=== PATIENT | female | born 1990 ===

== ENCOUNTER 2017-05-24 15:08 | Emergency (ER) | payer MEDICAID ==
[2017-05-24 15:20] VITALS: RESP 18; BMI 25.6
[2017-05-24 15:22] VITALS: O2SAT 100
[2017-05-24] MEDS ORDERED: Sodium Chloride 0.9% 1,000 ML IV ONE (15:42)
[2017-05-24 15:52] LABS: RBC URINE 4 /hpf (0-3); URINE BILIRUBIN NEGATIVE (NEGATIVE); URINE COLOR Yellow (YELLOW); URINE GLUCOSE (UA) NORMAL (Normal); URINE KETONE 2+ mg/dL (NEGATIVE); URINE LEUKOCYTE ESTERASE 3+ Leu/uL (Negative); URINE PROTEIN 1+ mg/dL (NEGATIVE); URINE UROBILINOGEN NORMAL mg/dL (0.2-1.0); WBC URINE 2 /hpf (0-5)
[2017-05-24] MEDS ORDERED: Sodium Chloride 0.9% 1,000 ML ONE (15:52)
[2017-05-24 15:55] LABS: URINE BLOOD TRACE (NEGATIVE)
[2017-05-24 16:00] LABS: BASO % 0.5 % (0.0-2.0); EOS # 0.1 K/uL (0.0-0.7); HEMATOCRIT 38.9 % (34.0-47.0); LYMPH % 28.3 % (20.0-40.0); MEAN CELL VOLUME 93.2 fL (81.0-99.0); MEAN CORPUSCULAR HEMOGLOBIN 31.2 pg (27.0-31.0); MEAN CORPUSCULAR HGB CONC 33.5 g/dL (33.0-37.0); MEAN PLATELET VOLUME 9.3 fL (7.2-11.7); MONO # 0.5 K/uL (0.0-0.8); MONO % 6.6 % (0.0-10.0); NRBC % 0.1 % (0.0-2.0); RED CELL DISTRIBUTION WIDTH 13.8 % (11.5-14.5)
[2017-05-24 16:10] LABS: CHLORIDE 102 mmol/L (98-107); SODIUM 140 mmol/L (132-148)
[2017-05-24 16:11] LABS: POTASSIUM 4.5 mmol/L (3.6-5.2)
[2017-05-24 16:13] LABS: ALB/GLOB RATIO 1.6 (1.0-2.1); ALKALINE PHOSPHATASE 45 U/L (38-126); ALT/SGPT 20 U/L (9-52); AST/SGOT 20 U/L (14-36); BILIRUBIN,TOTAL 1.1 mg/dL (0.2-1.3); BLOOD UREA NITROGEN 10 mg/dL (7-17); CARBON DIOXIDE 25 mmol/L (22-30); GFR AFRICAN-AMERICAN > 60; GLUCOSE,RANDOM 78 mg/dL (65-105); TOTAL PROTEIN 7.8 g/dL (6.3-8.3)
[2017-05-24 16:14] LABS: CALCIUM 9.1 mg/dl (8.6-10.4)
--- NOTE | 2017-05-24 16:16 | C.PDOC ---
History Of Present Illness 26 year old female with no past medical history presents to the ED with complaints of mid-abdominal pain beginning yesterday with associated nausea. Patient notes pain has been constant today and nausea has resolved. She took Astrid Jasper with no relief. LMP was 05/05/2017 for two days. Patient denies vomiting, diarrhea, constipation, or fever. Time Seen by Provider: 05/24/17 15:38 Chief Complaint (Nursing): Abdominal Pain History Per: Patient History/Exam Limitations: no limitations Onset/Duration Of Symptoms: Days (1 day ) Current Symptoms Are (Timing): Still Present Location Of Pain/Discomfort: Periumbilical Radiation Of Pain To:: None Quality Of Discomfort: "Pain" Associated Symptoms: Nausea. denies: Fever, Vomiting Recent travel outside of the [place]: No Abnormal Vaginal Bleeding: No Last Menstral Period: 05/05/2017 Past Medical History Vital Signs: Last Vital Signs Temp 98.0 F 05/24/17 17:05 Pulse 67 05/24/17 17:05 Resp 18 05/24/17 17:05 BP 95/61 L 05/24/17 17:05 Pulse Ox 100 05/24/17 18:02 - Medical History PMH: Asthma Family History: States: Unknown Family Hx - Social History Hx Tobacco Use: Yes Hx Alcohol Use: No Hx Substance Use: No - Immunization History Hx Tetanus Toxoid Vaccination: No Hx Influenza Vaccination: No Hx Pneumococcal Vaccination: No Physical Exam - Physical Exam Appears: Non-toxic, No Acute Distress Skin: Warm, Dry Head: Atraumatic, Normacephalic Eye(s): bilateral: Normal Inspection, PERRL, EOMI Oral Mucosa: Moist Neck: Supple Chest: Symmetrical, No Deformity Cardiovascular: Rhythm Regular, No Murmur Respiratory: Normal Breath Sounds, No Rales, No Rhonchi, No Wheezing Gastrointestinal/Abdominal: Soft, Tenderness (mid-abdominal tenderness ), No Distention, No Guarding, No Rebound Extremity: Normal ROM, No Tenderness ED Course And Treatment - Laboratory Results Result Diagrams: 05/24/17 15:56 05/24/17 15:56 O2 Sat by Pulse Oximetry: 100 (room air ) Progress Note: Obstructive series and labs were ordered. Patient was given Pepcid, Zofran, and IV fluids. Medical Decision Making Medical Decision Makin On re-eval, patient reports she is feeling much better, abdominal pain has improved. Discussed lab and xray results with patient, and copy of reports were provided. Patient feels comfortable going home and will be discharged. Patient given follow up instructions. Instructed to return to ER if symptoms worsen or new symptoms arise. Disposition Counseled Patient/Family Regarding: Diagnosis, Need For Followup, Rx Given - Disposition Referrals: Johnnie Bhatt MD [IM] - Disposition: HOME/ ROUTINE Disposition Time: 16:50 Condition: STABLE Additional Instructions: Your labs were normal and Xray shows constipation Increase your fiber and water intake to help with constipation. Follow up with your primary medical doctor or clinic in 2-5 days for further evaluation. Return to the emergency department at any time if symptoms persist or worsen. Prescriptions: Docusate [Colace] 100 mg PO Q8 #30 cap Instructions: Constipation (DC) Forms: [employer] (Wallisian) - POA Present On Arrival: None - Clinical Impression Clinical Impression: Constipation, Abdominal pain - PA / DIRECTOR / Resident Statement MD/DO has reviewed & agrees with the documentation as recorded. - Scribe Statement The provider has reviewed the documentation as recorded by the Scribsole Bhardwaj All medical record entries made by the Sebastian were at my direction and personally dictated by me. I have reviewed the chart and agree that the record accurately reflects my personal performance of the history, physical exam, medical decision making, and the department course for this patient. I have also personally directed, reviewed, and agree with the discharge instructions and disposition.
--- NOTE | 2017-05-24 16:26 | RAD ---
PROCEDURE: Radiographs of the chest and abdomen (obstructive series) HISTORY: abd pain COMPARISON: No prior. TECHNIQUE: AP radiograph of the chest, with upright and supine radiographs of the abdomen. FINDINGS: CHEST: Lungs: Clear. Cardiovascular: Normal size heart. No pulmonary vascular congestion. Pleura: No pleural fluid. No pneumothorax. Other findings: None. ABDOMEN AND PELVIS: Bowel: Moderate amount of stool seen within the cecum and ascending colon consistent with mild fecal retention/ constipation. Free air: None. Bones: Unremarkable. Other findings: None. IMPRESSION: No acute cardiopulmonary disease. Findings consistent mild constipation. No evidence acute mechanical bowel obstruction.
[2017-05-24 17:06] VITALS: BP 95/61; PULSE 67; TEMP 98
== END 2017-05-24 17:05 | disposition home or self-care (01) ==
LOC: C.ER 15:08
DX: K59.00 Constipation, unspecified (principal); R10.9 Unspecified abdominal pain
CPT/HCPCS: 74022; 80053; 81001; 83690; 84703; 85025; 96361; 96374; 96375; 99285; J2405; J7040

== ENCOUNTER 2017-09-15 18:42 | Emergency (ER) | payer MEDICAID ==
[2017-09-15 18:42] VITALS: BMI 25.6
[2017-09-15 19:13] VITALS: RESP 20
[2017-09-15] MEDS ORDERED: Amoxicillin-Clav 875-125 mg Tab PO STA (19:29)
--- NOTE | 2017-09-15 19:29 | C.PDOC ---
History Of Present Illness 26 yr old female presents to the ER with 2-3 day history of bilateral ear pain and sore throat, associated with fever and body aches. Patient states she has been taking OTC medication with no help. Denies recent travel, ear discharge, chest pain, SOB,nausea, vomiting, diarrhea, neck pain or headache. Time Seen by Provider: 09/15/17 19:20 Chief Complaint (Nursing): ENT Problem History Per: Patient History/Exam Limitations: None Onset/Duration Of Symptoms: Days (2-3) Current Symptoms Are (Timing): Still Present Past Medical History Reviewed: Historical Data, Nursing Documentation, Vital Signs Vital Signs: Last Vital Signs Temp 99.2 F 09/15/17 20:06 Pulse 82 09/15/17 20:06 Resp 20 09/15/17 20:06 BP 96/63 L 09/15/17 20:06 Pulse Ox 99 09/15/17 20:06 - Medical History PMH: Asthma Family History: States: No Known Family Hx - Social History Hx Tobacco Use: Yes Hx Alcohol Use: Yes Hx Substance Use: No - Immunization History Hx Tetanus Toxoid Vaccination: No Hx Influenza Vaccination: No Hx Pneumococcal Vaccination: No Review Of Systems Except As Marked, All Systems Reviewed And Found Negative. Constitutional: Positive for: Fever (subjective), Other ((+) body aches) ENT: Positive for: Ear Pain (bilateral), Throat Pain (sore throat). Negative for: Ear Discharge Cardiovascular: Negative for: Chest Pain Respiratory: Negative for: Shortness of Breath Gastrointestinal: Negative for: Nausea, Vomiting, Diarrhea Musculoskeletal: Negative for: Neck Pain Neurological: Negative for: Headache Physical Exam - Physical Exam Appears: Non-toxic, No Acute Distress Skin: Warm, Dry, No Rash Head: Atraumatic, Normacephalic Eye(s): bilateral: Normal Inspection, PERRL, EOMI Ear(s): Left: Normal, Right: TM Erythema Nose: Normal Oral Mucosa: Moist Lips: Normal Appearing Throat: Normal, No Erythema, No Exudate, No Drooling Neck: Normal, Normal ROM, Supple Lymphatic: Other ((+) preauricular lymph node on the right) Cardiovascular: Rhythm Regular, No Murmur Respiratory: Normal Breath Sounds, No Rales, No Rhonchi, No Stridor, No Wheezing Gastrointestinal/Abdominal: Normal Exam, Soft, No Tenderness, No Guarding, No Rebound Extremity: Normal ROM, No Swelling Neurological/Psych: Oriented x3, Normal Speech ED Course And Treatment O2 Sat by Pulse Oximetry: 98 (RA) Pulse Ox Interpretation: Normal Medical Decision Making Medical Decision Making: PLAN: * Amoxicillin PO * Claritin PO * Motrin PO Disposition - Disposition Referrals: [facility] [Outside] Disposition: HOME/ ROUTINE Disposition Time: 19:47 Condition: GOOD Additional Instructions: Follow up with the medical doctor/clinic within 3-5 days, Return if worsened. Prescriptions: Amoxicillin/Clavulanate [Augmentin 875 MG-125 MG] 1 tab PO BID #14 tab Ibuprofen [Motrin] 1 tab PO TID PRN #30 tab PRN Reason: Pain Loratadine [Claritin] 10 mg PO DAILY #10 tab Instructions: Otitis Media (ED) Forms: [employer] (Palauan) - Clinical Impression Clinical Impression: Otitis media - PA / CUTTING MACHINE OPERATOR / Resident Statement MD/DO has reviewed & agrees with the documentation as recorded. - Scribe Statement The provider has reviewed the documentation as recorded by the Scribe Arely Streeter All medical record entries made by the Scribe were at my direction and personally dictated by me. I have reviewed the chart and agree that the record accurately reflects my personal performance of the history, physical exam, medical decision making, and the department course for this patient. I have also personally directed, reviewed, and agree with the discharge instructions and disposition.
[2017-09-15] MEDS ORDERED: Amoxicillin-Clav 875-125 mg Tab PO ONE (19:37)
[2017-09-15 20:07] VITALS: BP 96/63; PULSE 82; TEMP 99.2
[2017-09-15 22:46] VITALS: O2SAT 98
== END 2017-09-15 20:11 | disposition home or self-care (01) ==
LOC: C.ER 18:42
DX: H66.90 Otitis media, unspecified, unspecified ear (principal)

== ENCOUNTER 2018-07-25 14:32 | Emergency (ER) | payer MEDICAID ==
[2018-07-25 14:32] VITALS: BMI 25.6
[2018-07-25 14:55] VITALS: BP 102/65; PULSE 62; RESP 18; TEMP 98.5; O2SAT 98
[2018-07-25] MEDS ORDERED: Sodium Chloride 0.9% 1,000 ML IV STA (16:01)
[2018-07-25] MEDS ORDERED: Sodium Chloride 0.9% 1,000 ML ONE (16:11)
[2018-07-25 16:28] LABS: BASO % 0.8 % (0.0-2.0); EOS # 0.2 K/uL (0.0-0.7); EOS % 3.3 % (0.0-4.0); HEMOGLOBIN 11.5 g/dL (11.0-16.0); LYMPH % 33.8 % (20.0-40.0); MEAN CORPUSCULAR HEMOGLOBIN 30.2 pg (27.0-31.0); MEAN CORPUSCULAR HGB CONC 32.8 g/dL (33.0-37.0); MEAN PLATELET VOLUME 9.3 fL (7.2-11.7); MONO # 0.4 K/uL (0.0-0.8); MONO % 7.8 % (0.0-10.0); NEUT # 3.2 K/uL (1.8-7.0); NEUT % 54.3 % (50.0-75.0); NRBC % 0.1 % (0.0-2.0); RBC 3.8 Mil/uL (3.80-5.20); RED CELL DISTRIBUTION WIDTH 13.4 % (11.5-14.5); WHITE BLOOD COUNT 5.8 K/uL (4.8-10.8)
[2018-07-25 16:34] LABS: HCG,QUALITATIVE URINE NEGATIVE (NEGATIVE)
[2018-07-25 16:38] LABS: SQUAMOUS EPITHIAL 2 /hpf (0-5); URINE BACTERIA MOD (<OCC); URINE BILIRUBIN NEGATIVE (NEGATIVE); URINE BLOOD NEGATIVE (NEGATIVE); URINE CLARITY Clear (Clear); URINE COLOR Colorless (YELLOW); URINE GLUCOSE (UA) NORMAL (Normal); URINE LEUKOCYTE ESTERASE TRACE Leu/uL (Negative); URINE PROTEIN NEGATIVE (NEGATIVE); URINE UROBILINOGEN NORMAL mg/dL (0.2-1.0)
--- NOTE | 2018-07-25 16:42 | C.PDOC ---
History Of Present Illness 27-year-old female, presents to the emergency department with complaints of six- day history of headache and dizziness, which is unlike anything she has experienced. Patient denies trauma/injury, nausea/vomiting, blurred or change in vision, photophobia or any other associated symptoms. no other complaints at this time. <Jennifer Chappell - Last Filed: 07/25/18 17:04> <Merissa Rodriguez - Last Filed: 07/25/18 16:38> <Jennifer Chappell - Last Filed: 07/25/18 17:04> Time Seen by Provider: 07/25/18 14:56 Chief Complaint (Nursing): Dizziness/Lightheaded Past Medical History Vital Signs: Last Vital Signs Temp 98.5 F 07/25/18 14:51 Pulse 62 07/25/18 14:51 Resp 18 07/25/18 14:51 BP 102/65 07/25/18 14:51 Pulse Ox 98 07/25/18 14:51 - Medical History PMH: Asthma Family History: States: Unknown Family Hx - Social History Hx Tobacco Use: Yes Hx Alcohol Use: No Hx Substance Use: No - Immunization History Hx Tetanus Toxoid Vaccination: No Hx Influenza Vaccination: No Hx Pneumococcal Vaccination: No <Merissa Rodriguez - Last Filed: 07/25/18 16:38> Vital Signs: Last Vital Signs Temp 98.5 F 07/25/18 14:51 Pulse 62 07/25/18 14:51 Resp 18 07/25/18 14:51 BP 102/65 07/25/18 14:51 Pulse Ox 98 07/25/18 16:43 <Jennifer Chappell - Last Filed: 07/25/18 17:04> ED Course And Treatment - Laboratory Results Result Diagrams: 07/25/18 16:24 O2 Sat by Pulse Oximetry: 98 <Merissa Rodriguez - Last Filed: 07/25/18 16:38> - Laboratory Results Result Diagrams: 07/25/18 16:24 07/25/18 16:24 <Jennifer Chappell - Last Filed: 07/25/18 17:04> Disposition - Disposition Disposition Time: 16:43 <Merissa Rodriguez - Last Filed: 07/25/18 16:38> <Jennifer Chappell - Last Filed: 07/25/18 17:04> - Disposition Disposition: AGAINST MEDICAL ADVICE Condition: STABLE Additional Instructions: Follow up with your PMD within 1-2 days. Return to ED immediately if feel worse. Instructions: Headache, Adult (DC) Forms: [employer] (Nepali) - Clinical Impression Clinical Impression: Dizziness, Headache
[2018-07-25 16:46] LABS: ALB/GLOB RATIO 1.4 (1.0-2.1); ALBUMIN 4.1 g/dL (3.5-5.0); ALT/SGPT 20 U/L (9-52); AST/SGOT 18 U/L (14-36); BLOOD UREA NITROGEN 16 mg/dL (7-17); CALCIUM 8.9 mg/dl (8.6-10.4); GFR NON-AFRICAN AMERICAN > 60
--- NOTE | 2018-07-25 16:49 | CT ---
Date of service: 07/25/2018 PROCEDURE: CT HEAD WITHOUT CONTRAST. HISTORY: headache/dizziness for 6 days COMPARISON: Not available TECHNIQUE: Axial computed tomography images were obtained through the head/brain without intravenous contrast. Radiation dose: Total exam DLP = 1622.19 mGy-cm. This CT exam was performed using one or more of the following dose reduction techniques: Automated exposure control, adjustment of the mA and/or kV according to patient size, and/or use of iterative reconstruction technique. FINDINGS: HEMORRHAGE: No intracranial hemorrhage. BRAIN: No mass effect or edema. No atrophy or chronic microvascular ischemic changes. VENTRICLES: Unremarkable. No hydrocephalus. CALVARIUM: Unremarkable. PARANASAL SINUSES: There is chronic pansinusitis. MASTOID AIR CELLS: Unremarkable as visualized. No inflammatory changes. OTHER FINDINGS: None. IMPRESSION: No intracranial mass, hemorrhage or evidence of acute infarct. Chronic pansinusitis noted.
--- NOTE | 2018-07-25 17:09 | C.PDOC ---
History Of Present Illness 27-year-old female, presents to the emergency department with complaints of six- day history of headache and dizziness, which is unlike anything she has experienced. Patient denies trauma/injury, nausea/vomiting, blurred or change in vision, photophobia or any other associated symptoms. no other complaints at this time. Time Seen by Provider: 07/25/18 14:56 Chief Complaint (Nursing): Dizziness/Lightheaded History Per: Patient History/Exam Limitations: no limitations Onset/Duration Of Symptoms: Days Current Symptoms Are (Timing): Still Present Past Medical History Reviewed: Historical Data, Nursing Documentation, Vital Signs Vital Signs: Last Vital Signs Temp 98.5 F 07/25/18 14:51 Pulse 62 07/25/18 14:51 Resp 18 07/25/18 14:51 BP 102/65 07/25/18 14:51 Pulse Ox 98 07/25/18 14:51 - Medical History PMH: Asthma Family History: States: No Known Family Hx - Social History Hx Tobacco Use: Yes Hx Alcohol Use: No Hx Substance Use: No - Immunization History Hx Tetanus Toxoid Vaccination: No Hx Influenza Vaccination: No Hx Pneumococcal Vaccination: No Review Of Systems Constitutional: Negative for: Fever Eyes: Negative for: Vision Change Gastrointestinal: Negative for: Nausea, Vomiting Neurological: Positive for: Headache, Dizziness. Negative for: Weakness, Numbness Physical Exam - Physical Exam Appears: Non-toxic, No Acute Distress Skin: Warm Head: Atraumatic Eye(s): bilateral: Normal Inspection Nose: Normal Oral Mucosa: Moist Lips: Normal Appearing Neck: Normal ROM Chest: Symmetrical Cardiovascular: Rhythm Regular, No Murmur Respiratory: Normal Breath Sounds, No Accessory Muscle Use Extremity: Normal ROM, No Deformity Neurological/Psych: Oriented x3, Normal Speech, Normal Cognition, Normal Cranial Nerves, Normal Motor, Normal Sensation, Normal Reflexes, Other (no focal deficits) ED Course And Treatment - Laboratory Results Result Diagrams: 07/25/18 16:24 07/25/18 16:24 O2 Sat by Pulse Oximetry: 98 Pulse Ox Interpretation: Normal (RA) - CT Scan/US CT head Other Rad Studies (CT/US): Read By Radiologist, Radiology Report Reviewed CT/US Interpretation: Accession No. : [id number]. Patient Name / ID : CHRISTIE PEÑALOZA / [id number]. Exam Date : 07/25/2018 16:23:48 ( Approved ). Study Comment : Sex / Age : F / 27Y. Creator : Kacy Owens. Dictator : Renzo Becerra MD. High School English Teacher : Billboard Poster Helper : Rnezo Becerra MD. Approver2 : Report Date : 07/25/2018 16:31:10. My Comment : . Date of service: 07/25/2018. PROCEDURE: CT HEAD WITHOUT CONTRAST. HISTORY: headache/dizziness for 6 days. COMPARISON: Not available. TECHNIQUE: Axial computed tomography images were obtained through the head/brain without intravenous contrast. Radiation dose: Total exam DLP = 1622.19 mGy-cm. This CT exam was performed using one or more of the following dose reduction techniques: Automated exposure control, adjustment of the mA and/or kV according to patient size, and/or use of iterative reconstruction technique. FINDINGS: HEMORRHAGE: No intracranial hemorrhage. BRAIN: No mass effect or edema. No atrophy or chronic microvascular ischemic changes. VENTRICLES: Unremarkable. No hydrocephalus. CALVARIUM: Unremarkable. PARANASAL SINUSES: There is chronic pansinusitis. MASTOID AIR CELLS: Unremarkable as visualized. No inflammatory changes. OTHER FINDINGS: None. IMPRESSION: No intracranial mass, hemorrhage or evidence of acute infarct. Chronic pansinusitis noted. Against Medical Advice - AMA Patient Left Against Medical Advice: The patient declines admission to the hospital and wishes to leave the Emergency Department. This action is against my medical advice. This decision was made with informed refusal. The patient was told that admission to the hospital is necessary. Explanation of the reasons why were discussed. The risks of leaving were explained to the patient and include, but are not limited to, worsening of known or currently unknown conditions, permanent disability and from undiagnosed or untreated conditions. The patient has the capacity to make this informed decision and understands my explanation of the current medical problem and risks of leaving. The patient voluntarily accepts these risks and signed an AMA form documenting our conversation. The patient was given the opportunity to ask questions and reconsider. The patient was encouraged to return to the Emergency Department at any time for further care. Medical Decision Making Medical Decision Making: Plan: * Bloodwork * CT Head * Reglan, IVF * UA * Reassess and Disposition Disposition - Disposition Disposition: AGAINST MEDICAL ADVICE Disposition Time: 16:39 Condition: STABLE Additional Instructions: Follow up with your PMD within 1-2 days. Return to ED immediately if feel worse. Instructions: Headache, Adult (DC) Forms: [employer] (Malawian) - Clinical Impression Clinical Impression: Dizziness, Headache - Scribe Statement The provider has reviewed the documentation as recorded by the Scribe (Candido Mckinney) All medical record entries made by the Scribe were at my direction and perso chago dictated by me. I have reviewed the chart and agree that the record accurately reflects my personal performance of the history, physical exam, medical decision making, and the department course for this patient. I have also personally directed, reviewed, and agree with the discharge instructions and disposition.
== END 2018-07-25 16:39 | disposition left against medical advice (07) ==
LOC: C.ER 14:32
DX: R42 Dizziness and giddiness (principal); R51 Headache
CPT/HCPCS: 70450; 80053; 81001; 84703; 85025; 96360; 99285; J2765; J7030